=== PATIENT | male | born 1970 | race American Indian/Alaskan Native ===

== ENCOUNTER 2017-02-13 08:45 | Emergency (ER) | payer OTHER ==
[2017-02-13 09:25] LABS: Basophils % (Auto) 0.2 % (0.0-1.8); Eosinophils % (Auto) 0.3 % (0.0-4.3); Hematocrit 41.9 % (35.5-45.6); Mean Corpuscular HGB Conc 34 % (32-34); Mean Corpuscular Hemoglobin 30 pg (28-32); Mean Corpuscular Volume 90 fl (84-94); Red Blood Count 4.64 M/mm3 (3.65-5.03); Red Cell Distribution Width 13.3 % (13.2-15.2)
[2017-02-13 09:35] LABS: Platelet Count 93 K/mm3 (140-440)
[2017-02-13 09:41] LABS: Alanine Aminotransferase 33 units/L (7-56); Albumin 3.9 g/dL (3.9-5); Alkaline Phosphatase 73 units/L (35-129); Anion Gap 17 mmol/L; Blood Urea Nitrogen 11 mg/dL (9-20); Calcium 8.8 mg/dL (8.4-10.2); Carbon Dioxide 27 mmol/L (22-30); Chloride 100.6 mmol/L (98-107); Glucose 104 mg/dL (75-100); Lipase 33 units/L (13-60); Potassium 4.1 mmol/L (3.6-5.0); Sodium 140 mmol/L (137-145); Total Protein 7.8 g/dL (6.3-8.2)
[2017-02-13 09:45] LABS: Bilirubin,Urine NEG (Negative); Blood,Urine NEG (Negative); Ketones,Urine NEG (Negative); Leukocyte Esterase,Urine NEG (Negative); Mucus,Urine 1+ /HPF; Nitrite,Urine NEG (Negative)
[2017-02-13] MEDS ORDERED: CARAFATE PO ONE (15:05)
[2017-02-13] MEDS ORDERED: BENTYL IM ONE (15:05)
--- NOTE | 2017-02-13 15:05 | Emergency Department Report ---
ED General Adult HPI - General Chief complaint: Abdominal Pain Stated complaint: FEVER/ABD CRAMPS Time Seen by Provider: 02/13/17 14:48 Source: patient, RN notes reviewed Mode of arrival: Ambulatory Limitations: No Limitations - History of Present Illness Initial comments: This is a 46-year-old male. He is previously unknown to me. His HIV primary care doctor is Dr. Fuchs. He reports being on highly active antiretroviral therapy, reports compliance with his medications. He reports an undetectable viral load, but can't recall his CD4 count. He also reports a history of colon cancer, and reports radiation therapy in 2009. He further reports that he followed up with his outpatient improvement leader June 2016, Dr. Rudolph, at [facility], and reports and negative colonoscopy, with the exception of some noncancerous polyps that were discontinued. The patient presents to the ER complaining of night sweats and fevers. He reports a fever on Sunday to 102 . To me he denies abdominal pain, but does admit to intermittent brown stool mixed with red blood. He has no headache, neck pain, chest pain, shortness of breath, testicular pain, irritative or obstructive urinary symptoms. He denies receptive anal intercourse and foreign body insertion. He reports compliance with his medications. Currently has no abdominal pain -: Gradual Consistency: intermittent Improves with: none Worsens with: none Associated Symptoms: fever/chills. denies: denies other symptoms, confusion, chest pain, cough, diaphoresis, headaches, loss of appetite, malaise, nausea/ vomiting, shortness of breath, syncope, weakness - Related Data Allergies Allergy/AdvReac Type Severity Reaction Status Date / Time No Known Allergies Allergy Unverified 02/13/17 08:49 ED Review of Systems ROS: Stated complaint: FEVER/ABD CRAMPS Other details as noted in HPI Constitutional: fever Eyes: denies: vision change ENT: denies: epistaxis Respiratory: denies: cough Cardiovascular: denies: chest pain Gastrointestinal: denies: vomiting, hematemesis, melena Genitourinary: denies: urgency, dysuria, testicular pain Musculoskeletal: denies: back pain Skin: denies: lesions Neurological: denies: weakness ED Past Medical Hx - Past Medical History Previous Medical History?: Yes Hx Hypertension: Yes Hx of Cancer: Yes (colon rectal) Hx HIV: Yes - Surgical History Past Surgical History?: Yes Additional Surgical History: tonsils removed, Colonoscopy with non cancerous polyps removed - Social History Smoking Status: Never Smoker Substance Use Type: Alcohol ED Physical Exam - General Limitations: No Limitations General appearance: alert, in no apparent distress - Head Head exam: Present: atraumatic, normocephalic - Eye Eye exam: Present: normal appearance, EOMI. Absent: nystagmus - ENT ENT exam: Present: normal exam, normal orophraynx, mucous membranes moist, normal external ear exam - Neck Neck exam: Present: normal inspection, full ROM. Absent: tenderness, meningismus - Respiratory Respiratory exam: Present: normal lung sounds bilaterally. Absent: respiratory distress, wheezes, rales, rhonchi, stridor, chest wall tenderness, accessory muscle use, decreased breath sounds, prolonged expiratory - Cardiovascular Cardiovascular Exam: Present: regular rate, normal rhythm, normal heart sounds. Absent: bradycardia, tachycardia, irregular rhythm, systolic murmur, diastolic murmur, rubs, gallop - GI/Abdominal GI/Abdominal exam: Present: soft, normal bowel sounds. Absent: distended, tenderness, guarding, rebound, rigid, pulsatile mass - Rectal Rectal exam: Present: normal inspection, normal rectal tone, heme (-) stool, other (during rectal examination, I am escorted by ER train control technician Jorge Quick) - Extremities Exam Extremities exam: Present: normal inspection, full ROM, normal capillary refill. Absent: pedal edema, joint swelling, calf tenderness - Back Exam Back exam: Present: normal inspection, full ROM. Absent: tenderness, CVA tenderness (R), CVA tenderness (L), muscle spasm, paraspinal tenderness, vertebral tenderness - Neurological Exam Neurological exam: Present: alert, oriented X3, normal gait, other (Extraocular movements intact. Tongue midline. No facial droop. Facial sensation intact to light touch in the V1, V2, V3 distribution bilaterally. 5 and 5 strength in 4 extremities.. Sensation is intact to light touch in 4 extremities.). Absent : motor sensory deficit - Psychiatric Psychiatric exam: Present: normal affect, normal mood - Skin Skin exam: Present: warm, dry, intact, normal color. Absent: rash ED Course Vital Signs 02/13/17 02/13/17 02/13/17 04:22 08:49 14:53 Temperature 98.4 F Pulse Rate 94 H Respiratory 18 Rate Blood Pressure 130/49 129/84 130/49 Blood Pressure [Left] O2 Sat by Pulse 100 100 Oximetry 02/13/17 02/13/17 02/13/17 15:00 15:09 15:11 Temperature 98.8 F Pulse Rate 80 Respiratory 20 Rate Blood Pressure 127/82 127/82 Blood Pressure 127/79 [Left] O2 Sat by Pulse 100 100 96 Oximetry 02/13/17 02/13/17 02/13/17 15:20 15:30 15:40 Temperature Pulse Rate Respiratory Rate Blood Pressure 127/82 127/82 127/82 Blood Pressure [Left] O2 Sat by Pulse 100 100 100 Oximetry 02/13/17 02/13/17 02/13/17 15:50 16:00 16:10 Temperature Pulse Rate Respiratory Rate Blood Pressure 127/82 116/79 116/79 Blood Pressure [Left] O2 Sat by Pulse 100 100 99 Oximetry 02/13/17 02/13/17 02/13/17 16:20 16:30 16:40 Temperature Pulse Rate Respiratory Rate Blood Pressure 116/79 116/79 116/79 Blood Pressure [Left] O2 Sat by Pulse 100 99 100 Oximetry 02/13/17 02/13/17 02/13/17 16:50 17:00 17:20 Temperature Pulse Rate Respiratory 18 Rate Blood Pressure 116/79 114/76 Blood Pressure [Left] O2 Sat by Pulse 99 100 98 Oximetry ED Medical Decision Making - Lab Data Result diagrams: 02/13/17 09:00 02/13/17 09:00 Vital Signs 02/13/17 02/13/17 02/13/17 04:22 08:49 14:53 Temperature 98.4 F Pulse Rate 94 H Respiratory 18 Rate Blood Pressure 130/49 129/84 130/49 Blood Pressure [Left] O2 Sat by Pulse 100 100 Oximetry 02/13/17 02/13/17 02/13/17 15:00 15:09 15:11 Temperature 98.8 F Pulse Rate 80 Respiratory 20 Rate Blood Pressure 127/82 127/82 Blood Pressure 127/79 [Left] O2 Sat by Pulse 100 100 96 Oximetry 02/13/17 02/13/17 02/13/17 15:20 15:30 15:40 Temperature Pulse Rate Respiratory Rate Blood Pressure 127/82 127/82 127/82 Blood Pressure [Left] O2 Sat by Pulse 100 100 100 Oximetry 02/13/17 02/13/17 02/13/17 15:50 16:00 16:10 Temperature Pulse Rate Respiratory Rate Blood Pressure 127/82 116/79 116/79 Blood Pressure [Left] O2 Sat by Pulse 100 100 99 Oximetry 02/13/17 02/13/17 02/13/17 16:20 16:30 16:40 Temperature Pulse Rate Respiratory Rate Blood Pressure 116/79 116/79 116/79 Blood Pressure [Left] O2 Sat by Pulse 100 99 100 Oximetry 02/13/17 02/13/17 02/13/17 16:50 17:00 17:20 Temperature Pulse Rate Respiratory 18 Rate Blood Pressure 116/79 114/76 Blood Pressure [Left] O2 Sat by Pulse 99 100 98 Oximetry Lab Results 02/13/17 02/13/17 02/13/17 Range/Units 09:00 09:00 09:09 WBC 4.0 L (4.5-11.0) K/mm3 RBC 4.64 (3.65-5.03) M/mm3 Hgb 14.0 (11.8-15.2) gm/dl Hct 41.9 (35.5-45.6) % MCV 90 (84-94) fl MCH 30 (28-32) pg MCHC 34 (32-34) % RDW 13.3 (13.2-15.2) % Plt Count 93 L (140-440) K/mm3 Lymph % (Auto) 37.1 H (13.4-35.0) % [place] % (Auto) 12.6 H (0.0-7.3) % Eos % (Auto) 0.3 (0.0-4.3) % Baso % (Auto) 0.2 (0.0-1.8) % Lymph # 1.5 (1.2-5.4) K/mm3 [place] # 0.5 (0.0-0.8) K/mm3 Eos # 0.0 (0.0-0.4) K/mm3 Baso # 0.0 (0.0-0.1) K/mm3 Seg Neutrophils % 49.8 (40.0-70.0) % Seg Neutrophils # 2.0 (1.8-7.7) K/mm3 Sodium 140 (137-145) mmol/L Potassium 4.1 (3.6-5.0) mmol/L Chloride 100.6 (98-107) mmol/L Carbon Dioxide 27 (22-30) mmol/L Anion Gap 17 mmol/L BUN 11 (9-20) mg/dL Creatinine 1.0 (0.8-1.5) mg/dL Estimated GFR > 60 ml/min BUN/Creatinine Ratio 11.00 % Glucose 104 H (75-100) mg/dL Calcium 8.8 (8.4-10.2) mg/dL Total Bilirubin 0.40 (0.1-1.2) mg/dL AST 29 (5-40) units/L ALT 33 (7-56) units/L Alkaline Phosphatase 73 (35-129) units/L Total Protein 7.8 (6.3-8.2) g/dL Albumin 3.9 (3.9-5) g/dL Albumin/Globulin Ratio 1.0 % Lipase 33 (13-60) units/L Urine Color Yellow (Yellow) Urine Turbidity Clear (Clear) Urine pH 5.0 (5.0-7.0) Ur Specific [place] 1.026 (1.003-1.030) Urine Protein 100 mg/dl (Negative) mg/dL Urine Glucose (UA) Neg (Negative) mg/dL Urine Ketones Neg (Negative) mg/dL Urine Blood Neg (Negative) Urine Nitrite Neg (Negative) Urine Bilirubin Neg (Negative) Urine Urobilinogen 4.0 (<2.0) mg/dL Ur Leukocyte Esterase Neg (Negative) Urine WBC (Auto) 1.0 (0.0-6.0) /HPF Urine RBC (Auto) 3.0 (0.0-6.0) /HPF U Epithel Cells (Auto) < 1.0 (0-13.0) /HPF Urine Mucus 1+ /HPF - Radiology Data Radiology results: report reviewed, image reviewed X-ray the chest is negative for acute disease - Medical Decision Making differential diagnosis: Pneumonia, urinary tract infection, fever related to HIV , radiation proctitis, colitis, diverticulitis Assessment and plan: 46-year-old male who reports a recent negative colonoscopy , with report of fever a few days ago, currently with no abdominal tenderness, rebound or guarding. The patient is afebrile with reassuring vital signs the ER multiple times, laboratory studies unremarkable, physical exam unremarkable, urinalysis and chest x-ray is not consistent with acute infectious etiology, patient was guaiac-negative, and has a benign abdomen. Given his benign examination, lack of fever, I do believe the patient requires advanced imaging at this time. The patient was observed in the ER for a prolonged period of time without clinical decompensation. The patient is suitable to follow up with his outpatient improvement leader and HIV specialist. He will be discharged at this time. Return precautions are reviewed. Given lack of rectal tenderness, lack of perianal tenderness, I think colitis/proctitis also unlikely. Critical care attestation.: If time is entered above; I have spent that time in minutes in the direct care of this critically ill patient, excluding procedure time. ED Disposition Clinical Impression: History of rectal bleeding Disposition: TO HOME OR SELFCARE Is pt being admited?: No Does the pt Need Aspirin: No Condition: Stable Additional Instructions: Continue current outpatient medications. Follow-up with her HIV specialist within the next 2 weeks. Follow-up with your improvement leader within the next 6 weeks. Return to the ER right away with new pain, worsened pain, migration of pain, intractable nausea or vomiting, confusion, shortness of breath, inability to tolerate liquid feeds, persistent fevers that last for more than 3-4 days consecutively. Referrals: Ismael BERNARD [Other] - 3-5 Days LEWIS TIRADO MD [Staff Physician] - 3-5 Days Forms: Work/School Release Form(ED)
--- NOTE | 2017-02-13 16:11 | XRay Report ---
CHEST 2 VIEWS INDICATION: History of fever, chills, HIV. Evaluate for pneumonia. COMPARISON: None similar at this institution. FINDINGS: PA and lateral chest radiographs demonstrate normal cardiomediastinal silhouette. Clear lungs. Right hemidiaphragm slightly elevated. Intact bones. CONCLUSION: No acute disease in the chest. Thank you for the opportunity to participate in this patient's care.
[2017-02-13 17:20] VITALS: BP 114/76
== END 2017-02-13 17:42 | disposition home or self-care (01) ==
LOC: ED 08:45
DX: R50.9 Fever, unspecified (principal); I10 Essential (primary) hypertension; Z85.038 Personal history of other malignant neoplasm of large intestine
CPT/HCPCS: 36415; 71020; 80053; 81001; 82271; 83690; 85025; 96372; 99284; J0500

== ENCOUNTER 2020-11-21 01:26 | Emergency (ER) | payer OTHER ==
--- NOTE | 2020-11-21 03:09 | Event Note ---
ED Screening Note Date of service: 11/21/20 Time: 03:08 ED Screening Note: Pt c/o SOB x 2 weeks occurs mainly with exertion denies cough or CP HIV+ on ART Perc negative This initial assessment/diagnostic orders/clinical plan/treatment(s) is/are subject to change based on patients health status, clinical progression and re- assessment by fellow clinical providers in the ED. Further treatment and workup at subsequent clinical providers discretion. Patient/guardian urged not to elope from the ED as their condition may be serious if not clinically assessed and managed. Initial orders include: labs ekg CXR
[2020-11-21 03:33] LABS: Hematocrit 47.6 % (35.5-45.6); Hemoglobin 16.1 gm/dl (11.8-15.2); Mean Corpuscular HGB Conc 34 % (32-34); Mean Corpuscular Volume 89 fl (84-94); Red Blood Count 5.37 M/mm3 (3.65-5.03); Red Cell Distribution Width 13.7 % (13.2-15.2)
[2020-11-21 03:35] LABS: Platelet Count 96 K/mm3 (140-440)
--- NOTE | 2020-11-21 03:39 | XRay Report ---
CHEST 2 VIEWS INDICATION: shortness of breath. COMPARISON: 02/13/2017. FINDINGS: Support devices: None. Heart: Within normal limits. Lungs/Pleura: No acute air space or interstitial disease. No significant pleural effusion. IMPRESSION: No acute findings. Signer Name: Zain Jaime MD Signed: 11/21/2020 3:35 AM Workstation Name: [id number]
[2020-11-21 03:57] LABS: Alanine Aminotransferase 17 units/L (7-56); Albumin 4.6 g/dL (3.9-5); BUN/Creatinine Ratio 8; Blood Urea Nitrogen 9 mg/dL (9-20); Calcium 9.5 mg/dL (8.4-10.2); Hemolysis Index 10
[2020-11-21 05:29] LABS: Total Cells Counted 100
[2020-11-21 05:30] LABS: Anisocytosis 1+; Platelet Estimate Consistent w Auto
--- NOTE | 2020-11-21 06:47 | Emergency Department Report ---
ED Shortness of Breath HPI - General Chief Complaint: Dyspnea/Respdistress Stated Complaint: SOB/ABNORMAL BREATHING Time Seen by Provider: 11/21/20 03:07 Source: patient Mode of arrival: Ambulatory Limitations: No Limitations - History of Present Illness Initial Comments: This is a 50-year-old man who states for the past 2 to 3 weeks he has had dyspnea on exertion. He describes as mostly when going upstairs. He is not dyspneic at rest. He denies recent cough or fever. He denies a history of congestive heart failure. He has had no recent traveling. He does not really report any acute exacerbation. He states he was taken off his blood pressure medicine by his primary care physician a few weeks ago. Subsequently he developed this problem. He denies leg swelling. He denies any chest pain chest pressure or tightness whatsoever. MD Complaint: shortness of breath -: Gradual, week(s) Radiation: other (No pain complaint) Worsens With: exertion Context: other (HIV positive) Associated Symptoms: denies other symptoms - Related Data Previous Rx's Medication Instructions Recorded Last Taken Type Losartan/Hydrochlorothiazide 1 each PO DAILY #30 tablet 11/21/20 Unknown Rx [Losartan-Hctz 50-12.5 mg Tab] Allergies Allergy/AdvReac Type Severity Reaction Status Date / Time No Known Allergies Allergy Unverified 02/13/17 08:49 ED Review of Systems ROS: Stated complaint: SOB/ABNORMAL BREATHING Other details as noted in HPI Constitutional: denies: chills, fever Eyes: denies: eye pain, vision change ENT: denies: ear pain, throat pain Respiratory: SOB with exertion. denies: cough, shortness of breath, wheezing Cardiovascular: denies: chest pain, palpitations Endocrine: no symptoms reported Gastrointestinal: denies: abdominal pain, nausea, diarrhea Genitourinary: denies: urgency, dysuria Musculoskeletal: denies: back pain, joint swelling, arthralgia Skin: denies: rash, lesions Neurological: denies: headache, weakness, paresthesias Psychiatric: denies: anxiety, depression Hematological/Lymphatic: denies: easy bleeding, easy bruising ED Past Medical Hx - Past Medical History Previous Medical History?: Yes Hx Hypertension: Yes Hx HIV: Yes - Surgical History Past Surgical History?: Yes Additional Surgical History: tonsils removed, Colonoscopy with non cancerous polyps removed - Social History Smoking Status: Never Smoker - Medications Home Medications: Home Medications Medication Instructions Recorded Confirmed Last Taken Type Losartan/Hydrochlorothiazide 1 each PO DAILY #30 tablet 11/21/20 Unknown Rx [Losartan-Hctz 50-12.5 mg Tab] ED Physical Exam - General Limitations: No Limitations General appearance: alert, in no apparent distress - Head Head exam: Present: atraumatic, normocephalic - Eye Eye exam: Present: normal appearance. Absent: scleral icterus - ENT ENT exam: Present: mucous membranes moist - Neck Neck exam: Present: normal inspection - Respiratory Respiratory exam: Present: normal lung sounds bilaterally. Absent: respiratory distress - Cardiovascular Cardiovascular Exam: Present: regular rate, normal rhythm. Absent: systolic murmur, diastolic murmur, rubs, gallop - GI/Abdominal GI/Abdominal exam: Present: soft, normal bowel sounds. Absent: distended, tenderness, guarding, rebound - Rectal Rectal exam: Present: deferred - Extremities Exam Extremities exam: Present: normal inspection - Back Exam Back exam: Present: normal inspection - Neurological Exam Neurological exam: Present: alert, oriented X3, CN II-XII intact. Absent: motor sensory deficit - Psychiatric Psychiatric exam: Present: normal affect, normal mood - Skin Skin exam: Present: warm, dry, intact, normal color. Absent: rash ED Course Vital Signs 11/21/20 11/21/20 11/21/20 03:02 06:15 06:23 Temperature 98.5 F 98.2 F Pulse Rate 85 72 Respiratory 18 16 Rate Blood Pressure 146/99 140/105 O2 Sat by Pulse 99 97 99 Oximetry - Reevaluation(s) Reevaluation #1: Patient's pulse oximetry was checked on exertion. His baseline was 96 after exertion it was 97. He was not short of breath. He was asymptomatic. Patient is noted to have an abnormal EKG. There is none for comparison. He is referred to cardiology. I think an echocardiogram would be useful in this setting. I did check his blood pressure twice and it was at about 160/100. He will be placed on losartan HCTZ. His proBNP was 588.7. 11/21/20 06:48 ED Medical Decision Making - Lab Data Result diagrams: 11/21/20 03:18 11/21/20 03:18 Laboratory Results - last 24 hr 11/21/20 11/21/20 03:18 03:18 WBC 5.9 RBC 5.37 H Hgb 16.1 H Hct 47.6 H MCV 89 MCH 30 MCHC 34 RDW 13.7 Plt Count 96 L Lymph % (Auto) Care Team Coordinator Scheduler Add Manual Diff Complete Total Counted 100 Seg Neutrophils % Care Team Coordinator Scheduler Seg Neuts % (Manual) 32.0 L Lymphocytes % (Manual) 57.0 H Monocytes % (Manual) 10.0 H Eosinophils % (Manual) 1.0 Nucleated RBC % Not Reportable Seg Neutrophils # Man 1.9 Band Neutrophils # 0.0 Lymphocytes # (Manual) 3.4 Abs React Lymphs (Man) 0.0 Monocytes # (Manual) 0.6 Eosinophils # (Manual) 0.1 Basophils # (Manual) 0.0 Metamyelocytes # 0.0 Myelocytes # 0.0 Promyelocytes # 0.0 Blast Cells # 0.0 WBC Morphology Not Reportable Hypersegmented Neuts Not Reportable Hyposegmented Neuts Not Reportable Hypogranular Neuts Not Reportable Smudge Cells Not Reportable Toxic Granulation Not Reportable Toxic Vacuolation Not Reportable Dohle Bodies Not Reportable Pelger-Huet Anomaly Not Reportable Basilia Rods Not Reportable Platelet Estimate Consistent w auto Clumped Platelets Not Reportable Plt Clumps, EDTA Not Reportable Large Platelets Not Reportable Giant Platelets Not Reportable Platelet Satelliting Not Reportable Plt Morphology Comment Not Reportable RBC Morphology Not Reportable Dimorphic RBCs Not Reportable Polychromasia Not Reportable Hypochromasia Not Reportable Poikilocytosis Not Reportable Anisocytosis 1+ Microcytosis Not Reportable Macrocytosis Not Reportable Spherocytes Not Reportable Pappenheimer Bodies Not Reportable Sickle Cells Not Reportable Target Cells Not Reportable Tear Drop Cells Not Reportable Ovalocytes Not Reportable Helmet Cells Not Reportable [place] Bodies Not Reportable [place] Rings Not Reportable [place] Cells Not Reportable Bite Cells Not Reportable Crenated Cell Not Reportable Elliptocytes Not Reportable Acanthocytes (Spur) Not Reportable Rouleaux Not Reportable Hemoglobin C Crystals Not Reportable Schistocytes Not Reportable Malaria parasites Not Reportable [place] Bodies Not Reportable Hem Pathologist Commnt No Sodium 140 Potassium 4.2 Chloride 102.1 Carbon Dioxide 29 Anion Gap 13 BUN 9 Creatinine 1.2 Estimated GFR > 60 BUN/Creatinine Ratio 8 Glucose 102 H Calcium 9.5 Total Bilirubin 0.50 AST 16 ALT 17 Alkaline Phosphatase 110 Troponin T < 0.010 NT-Pro-B Natriuret Pep 588.7 H Total Protein 7.2 Albumin 4.6 Albumin/Globulin Ratio 1.8 - EKG Data -: EKG Interpreted by Me EKG shows normal: sinus rhythm Rate: normal - EKG Data Interpretation: other (Inverted T waves in V2 and V3 and mildly in the inferior leads) - Radiology Data Radiology results: report reviewed (Chest x-ray no acute process), image reviewed Critical care attestation.: If time is entered above; I have spent that time in minutes in the direct care of this critically ill patient, excluding procedure time. ED Disposition Clinical Impression: Exertional dyspnea, Uncontrolled stage 2 hypertension, Abnormal EKG Disposition: TO HOME OR SELFCARE Is pt being admited?: No Does the pt Need Aspirin: No Condition: Stable Instructions: Hypertension (ED), Shortness of Breath, Adult, [id number], Managing Your Hypertension Additional Instructions: I would definitely recommend a cardiology evaluation. See referral. Return to the emergency department any acute changes chest pain or significant breathing trouble. Rx as directed. Continue other medications. Covid testing can be obtained at various locations. Prescriptions: Losartan/Hydrochlorothiazide [Losartan-Hctz 50-12.5 mg Tab] 1 each PO DAILY #30 tablet Referrals: CHARLIE EASTMAN MD [Primary Care Provider] - 3-5 Days MARIELA MURILLO MD [Staff Physician] - 2-3 Days Time of Disposition: 06:52
[2020-11-21 07:10] VITALS: BP 145/101
--- NOTE | 2020-11-22 11:13 | Electrocardiograph Report ---
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
== END 2020-11-21 07:12 | disposition home or self-care (01) ==
LOC: ED 01:26
DX: R06.09 Other forms of dyspnea (principal); R94.31 Abnormal electrocardiogram [ECG] [EKG]; I10 Essential (primary) hypertension; Z98.890 Other specified postprocedural states; Z79.899 Other long term (current) drug therapy; Z21 Asymptomatic human immunodeficiency virus [HIV] infection status
CPT/HCPCS: 36415; 71046; 80053; 83880; 84484; 85007; 85025; 93005